=== PATIENT | male | born 1965 ===

== ENCOUNTER 2020-05-29 10:01 | Emergency (ER) | payer OTHER, SELFPAY ==
[2020-05-29 10:13] VITALS: BP 129/91; PULSE 61; RESP 20; TEMP 36.2; O2SAT 97
--- NOTE | 2020-05-29 10:28 | ED.BACK ---
HPI - Back Pain/Injury General Chief Complaint: Back Pain/Injury Stated Complaint: back pain Source: patient Mode of arrival: ambulatory Limitations: no limitations History of Present Illness HPI Narrative: Patient is a 54-year-old male who presents complaining of lower back pain that radiates into the left leg. He reports he was using a equipment washer at work 2 to 3 days ago and reports possibly twisting wrong. He reports pain is increased over the past few days, he has taken Tylenol without relief. He reports pain increases with movement. Reports a history of back pain with laminectomy 20+ years ago. He sees a chiropractor as needed and reports going to the chiropractor 2 days ago without relief. He denies numbness to lower leg, but reports sharp shooting pain down buttocks into left leg. MD elicited complaint: back pain Pertinent past history: prior back pain Severity: moderate Related Data Home Medications Medication Instructions Recorded Confirmed atorvastatin 40 mg PO DAILY 07/03/19 05/29/20 clopidogrel 75 mg PO DAILY 07/03/19 05/29/20 lisinopril-hydrochlorothiazide 20 - 125 tablet PO DAILY 07/03/19 05/29/20 metoprolol succinate [Toprol XL] 100 mg PO DAILY 07/03/19 05/29/20 aspirin [Adult Low Dose Aspirin] 81 mg PO DAILY 05/29/20 05/29/20 gabapentin 300 mg PO BID 05/29/20 05/29/20 Allergies Allergy/AdvReac Type Severity Reaction Status Date / Time No Known Allergies Allergy Verified 05/29/20 10:20 Review of Systems Review of Systems: Narrative: CONSTITUTIONAL: Denies fever, chills, or sweats. EYES: Denies visual changes, redness, or discharge. ENT: Denies rhinorrhea, congestion, sore throat, or otalgia. CARDIOVASCULAR: Denies chest pain, palpitations, or edema. RESPIRATORY: Denies cough or dyspnea. GASTROINTESTINAL: Denies abdominal pain, nausea, vomiting, or diarrhea. GENITOURINARY: Denies dysuria or hematuria. SKIN: Denies rash or itching. MUSCULOSKELETAL: Reports left lower back pain that radiates into left buttocks and leg, denies joint pain or myalgia. NEUROLOGIC: Denies headache, numbness, dizziness, or weakness. PSYCHIATRIC: Denies anxiety or depression. [facility] Past Medical History Medical History (Updated 05/29/20 @ 10:43 by KAITLYN Gallego) HTN (hypertension) Hypercholesterolemia Surgical History Surgical History History of heart artery stent Hx of laminectomy Social History Social History (Updated 05/29/20 @ 10:34 by KAITLYN Gallego) Smoking status: Current every day smoker Alcohol intake: current Alcohol use details: socially Substance use: never Living arrangements: with family Occupation/Education: occupation Exam Narrative: Exam Narrative: GENERAL: Well-appearing, well-nourished, and in no acute distress. HEAD: Normocephalic, atraumatic. EYES: No redness or drainage. Conjunctiva are normal. ENT: Mucous membranes pink and moist. HEART: Regular rate and rhythm. No murmur appreciated. Normal peripheral pulses. MUSCULOSKELETAL: Left paraspinous tenderness with palpation, pain to left buttocks with palpation EXTREMITIES: Normal range of motion. No edema. Good pedal pulses and <2 capillary refill. SKIN: Warm, dry, no rash. NEURO: No focal deficits. Alert and oriented x3. Gait steady. PSYCH: Normal affect. No signs of depression or anxiety. Course Vital Signs Vital signs: Vital Signs Temperature 36.2 C L 05/29/20 10:13 Pulse Rate 61 05/29/20 10:13 Respiratory Rate 20 05/29/20 10:13 Blood Pressure 129/91 H 05/29/20 10:13 Pulse Oximetry 97 05/29/20 10:13 Temperature 36.2 C L 05/29/20 10:13 Pulse Rate 61 05/29/20 10:13 Respiratory Rate 20 05/29/20 10:13 Blood Pressure 129/91 H 05/29/20 10:13 Pulse Oximetry 97 05/29/20 10:13 Reviewed. Patient has been instructed to follow-up with his PCP regarding his blood pressure. MDM - Back Pain/Injury MDM Narrative Me
== END 2020-05-29 10:52 | disposition home or self-care (01) ==
PROVIDERS: Emergency Provider Nurse Practitioner; PCP Nurse Practitioner Adult Health
DX: M54.16 Radiculopathy, lumbar region (principal); M54.32 Sciatica, left side; F17.200 Nicotine dependence, unspecified, uncomplicated; I10 Essential (primary) hypertension; E78.00 Pure hypercholesterolemia, unspecified; Z95.5 Presence of coronary angioplasty implant and graft
CPT/HCPCS: 99213; G0463

== ENCOUNTER → 2020-06-10 17:24 | Outpatient (CLI) | payer OTHER, SELFPAY ==
--- NOTE | ~2020-06-10 | XR_ITS ---
EXAMINATION: XR lumbar spine 2-3V EXAM DATE: 06/10/2020 18:55 INDICATION: Initial encounter following injury, with pain of the hip pain, toe numbness. TECHNIQUE: Lumber spine frontal, lateral, lateral L5-S1 projections for interpretation. There is no prior study for comparison. FINDINGS: There is moderate to severe facet arthropathy and moderate disc disease at L4-5 and L5-S1. Mild to moderate spondylosis at L3-4. No spondylolysis. The vertebral bodies are aligned in the AP d imension. The vertebral body heights are maintained. Sacrum, sacroiliac joints, sacral arcuate lines are intact. Paraspinal soft tissue is unremarkable. IMPRESSION: 1. Lower lumbar moderate to severe facet arthropathy, moderate disc disease. Reviewed, dictated and finalized at [facility].
--- NOTE | ~2020-06-10 | XR_ITS ---
EXAMINATION: XR hip LT min 2V EXAM DATE: 06/10/2020 18:55 INDICATION: No known recent injury provided at this time. Pain of the left hip. TECHNIQUE: Left hip frontal, 'frog leg' projections for interpretation. There is no prior study for comparison. FINDINGS: Smooth left hip femoral head contour, no radiographic evidence of avascular necrosis. Ther e is moderate primary osteoarthritis. There are no acute fractures or dislocations identified. There is no subcutaneous gas. The soft tissue is unremarkable. There are no radiopaque foreign bodies. IMPRESSION: Moderate left hip osteoarthritis. Reviewed, dictated and finalized at [facility].
== END ==
PROVIDERS: PCP Nurse Practitioner Adult Health; Visit Provider Chiropractor
DX: M51.36 Other intervertebral disc degeneration, lumbar region (principal); M16.12 Unilateral primary osteoarthritis, left hip
CPT/HCPCS: 72100; 73502

== ENCOUNTER 2021-01-02 21:40 | Emergency (ER) | payer OTHER, SELFPAY ==
--- NOTE | ~2021-01-02 | CT_ITS ---
EXAMINATION: CT cervical spine wo con DATE: 01/02/2021 22:55 INDICATION: Fall TECHNIQUE: Computed tomography (CT) of the cervical spine was performed without intravenous contrast. Automated exposure control and iterative reconstruction technique were employed. Exam dose: 507.34 mGy-cm total exam DLP. COMPARISON: None FINDINGS: There is degenerative change including narrowing of the joint space and spurring at the art iculation of the C1 anterior arch and the C2 odontoid process. Anterior osteophytes are noted through out the cervical spine. Cervical interspaces are relatively preserved. No fracture or dislocation or locked facet or prevertebral soft tissue swelling. IMPRESSION: Degenerative changes; no fracture, dislocation or locked facet Reviewed, dictated and finalized at [facility]. Reviewed, dictated and finalized at [facility].
--- NOTE | ~2021-01-02 | CT_ITS ---
EXAMINATION: CT brain wo con DATE: 01/02/2021 22:55 INDICATION: Fall. Worsening left arm weakness. TECHNIQUE: Computed tomography (CT) of the head was performed without intravenous contrast. The mA wa s adjusted according to patient size. Iterative reconstruction technique was employed. Exam dose: 60 5.33 mGy-cm total exam DLP. COMPARISON: None FINDINGS: No intracranial mass lesion or hemorrhage or cerebrovascular accident is evident. No midlin e shift or mass effect. Normal barraza-white matter differentiation. No subdural or epidural hematoma is detected. Some carotid siphon internal carotid artery calcifications are noted. Included paranasal sinuses and mastoid air cells are unremarkable. No fracture or bone destruction of the cranial vault. IMPRESSION: Cerebral atherosclerosis; no acute intracranial finding or skull fracture Reviewed, dictated and finalized at [facility]. Reviewed, dictated and finalized at [facility]. IMPRESSION: Cerebral atherosclerosis; no acute intracranial finding or skull f racture
[2021-01-02 21:47] VITALS: BP 155/116; PULSE 84; RESP 20; TEMP 36.9
--- NOTE | 2021-01-02 22:33 | ECG_ITS ---
Measurements Intervals [place] Rate: 85 P: 58 MN: 199 QRS: 58 QRSD: 89 T: 58 QT: 333 QTc: 396 Interpretive Statements SINUS RHYTHM VENTRICULAR PREMATURE COMPLEX INCOMPLETE RIGHT BUNDLE BRANCH BLOCK BORDERLINE ST ABNORMALITY- ANTEROLATERAL LEADS BASELINE ARTIFACT- I, II, III, AVR, AVL, AVF, V2 BORDERLINE ECG Electronically Signed On 01-03-2021 7:02:50 CDT by Arley Fay D.O.
--- NOTE | 2021-01-02 22:39 | ED.NEUROSD ---
HPI - Neuro Symptoms/Deficit General Chief Complaint: Neuro Symptoms/Deficit Stated Complaint: pt sts arm and neck locked up 45 ,imutes ago Time Seen by Provider: 01/02/21 22:09 Source: patient Mode of arrival: wheelchair Limitations: no limitations History of Present Illness HPI Narrative: This is a 55 year old male with history DM, hypertension, peripheral neuropathy who presents for evaluation of abnormal left arm movement. He states he has been having bilateral feet and hand numbness tingling since July 2020. He states he was diagnosed with peripheral neuropathy at that time. He reports he had an MRI of his lumbar spine and thoracic spine but he is unsure if his cervical spine was imaged. He reports progressive weakness over the past month, and he is having trouble ambulating due to his leg weakness. Tonight he became dizzy and he fell. Afterwards he states his left arm contracted to his side and his neck turned to the left. He denies extremity pain. He has numbness to bilateral arms up to his elbow. He denies LOC, nausea, vomiting, fever or chills. Related Data Allergies Allergy/AdvReac Type Severity Reaction Status Date / Time iohexol AdvReac Vomiting Verified 01/02/21 21:56 [From contrast - CT, X-RAY] Review of Systems Review of Systems: All systems reviewed & are unremarkable except as noted in HPI and below PMFSH Past Medical History Medical History (Updated 01/03/21 @ 07:46 by Sara Gutierrez MD) Hypertension Peripheral neuropathy Surgical History Surgical History (Updated 01/02/21 @ 22:49 by Sara Gutierrez MD) History of lumbar laminectomy Family History Family History (Updated 03/24/16 @ 23:21 by DOCTOR UNKNOWN) Father Hypertension Family history of alcoholism Patient's father is Mother Hypertension Patient's mother is in good health Sibling Patient's sister is in good health Patient's brother is in good health Grandparent Hypertension Other Family history of attention deficit hyperactivity disorder (ADHD) Family history of eczema Family history of kidney disease Family history of learning disability Family history of seizure disorder Social History Social History Alcohol intake: never Gender identity (if verbalized by the patient): Male Exam Const: General: no acute distress and alert Orientation/consciousness: patient oriented x3 HENMT: Head: normocephalic and atraumatic Face and sinus: face symmetric Throat: posterior oropharynx normal, tonsils normal and uvula midline Eyes: Pupils: Equal, round and reactive pupils present EOM: EOMs intact bilaterally Resp: Effort & Inspection: normal respiratory effort and no retractions Auscultation: clear to auscultation bilaterally Cardio: Rate: regular rate Rhythm: regular rhythm Heart sounds: no murmurs GI: GI Palp: Yes Soft to palpation, No Tenderness to palpation present (GI) and No Guarding due to palpation present (GI) Neuro: General: patient oriented x3 and CN's II-XI intact bilaterally Cranial nerves: Yes Nystagmus not present Speech: normal speech Other: able to lift right arm but there is drift, left arm about to shrug shoulder, 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 This appears to be progressive problem . tHis does note appear to be a CVA or TIA. left leg weakness, numbness is chronic and not new today. He is followed by neurosurgery at [facility] so he will be transferred. Date: 01/03/21 Time: 00:18 Reevaluation #2: PAtient is awaiting bed [facility] Care to be turned over to dR. Herrera. Date: 01/03/21 Time: 07:47 Consultations Consultation #1: I discussed case with Dr. Barger and he accepts
[2021-01-02 22:49] LABS: Basophils Absolute Auto 0.1 K/mm3 (0.0-0.1); Basophils Percent Auto 0.6 % (0.2-1.2); Eosinophils Absolute Auto 0.2 K/mm3 (0-0.3); Eosinophils Percent Auto 1.7 % (0-4.4); Hematocrit 44.6 % (42.0-52.0); Hemoglobin 14.5 g/dL (14.0-18.0); Immature Granulocyte Absolute 0.11 K/mm3 (0.00-0.031); Lymphocytes Absolute Auto 3.09 K/mm3 (0.9-3.2); Lymphocytes Percent Auto 28.5 % (18.3-44.2); Mean Corpuscular HGB Conc 32.5 g/dl (32-36); Mean Corpuscular Hemoglobin 28.6 pg (26-34); Mean Platelet Volume 9.7 fl (7.4-10.4); Monocytes Absolute Auto 1.2 K/mm3 (0.1-0.6); Monocytes Percent Auto 11.4 % (2.6-8.5); Neutrophils Absolute Auto 6.2 K/mm3 (1.3-6.7); Neutrophils Percent Auto 56.8 % (45.5-73.1); Platelet Count Result 271 k/mm3 (150-375); Red Blood Count 5.07 M/mm3 (4.6-6.20); Red Cell Distribution Width 13.4 % (11.5-14.5); White Blood Count 10.8 K/mm3 (4.5-10.0)
[2021-01-02 22:55] LABS: INR 0.9; Prothrombin Time 12.4 Seconds (11.1-14.7)
[2021-01-02 22:56] VITALS: BP 125/91; PULSE 76; RESP 21; O2SAT 97
[2021-01-02 22:56] LABS: Partial Thromboplastin Time 27.3 SECONDS (22.3-36.8)
[2021-01-02 22:57] LABS: Alanine Aminotransferase 32 U/L (4-50); Albumin Level 4.6 g/dL (3.5-5.1); Alkaline Phosphatase 160 U/L (38-126); Anion Gap 7 mmol/L (8-16); Aspartate Amino Transferase 29 U/L (17-59); Bilirubin,Total 0.6 mg/dL (0.2-1.3); Blood Urea Nitrogen 16 mg/dL (9-20); Calcium 9.6 mg/dL (8.4-10.2); Carbon Dioxide 31 mmol/L (22-30); Chloride 101 mmol/L (98-107); Estimated Glomerular Filt Rate > 60; Glucose 104 mg/dL (75-110); Potassium 3.8 mmol/L (3.4-5.0); Sodium 139 mmol/L (137-145)
[2021-01-03] VITALS (40 sets, daily range): BP systolic 95–167; BP diastolic 61–105; PULSE 56–80; RESP 14–25; TEMP 36.6–36.8; O2SAT 94–100
--- NOTE | 2021-01-03 00:10 | PC.NURSE ---
Pt was accepted as a pt at [place] in the neuro surgery unit.
--- NOTE | 2021-01-03 03:42 | PC.NURSE ---
contacted [facility], spoke with Kathy about patients bed status. Neuro surg center is full at this time. bed should be available after discharges .
--- NOTE | 2021-01-03 05:59 | PC.NURSE ---
contacted [facility], spoke with Kathy about patients bed status. Neuro surgery center is full at this time. bed should be available after discharges this morning- Kathy states they will call when they have a bed available.
--- NOTE | 2021-01-03 07:45 | PC.NURSE ---
breakfast food order called in.
--- NOTE | 2021-01-03 20:31 | PC.NURSE ---
Pt accepted at [place]. ROOM [id number] [facility]. Accepting MD: Travis Wellington. Report phone Number: [phone].
--- NOTE | 2021-01-03 20:39 | PC.NURSE ---
Report to FIDELIA Watkins at [facility]. Pt updated.
== END 2021-01-03 21:11 | disposition short-term general hospital (02) ==
PROVIDERS: General Practice; Emergency Provider Emergency Medicine; PCP Nurse Practitioner Adult Health
DX: R53.1 Weakness (principal); R20.2 Paresthesia of skin; E11.42 Type 2 diabetes mellitus with diabetic polyneuropathy; I10 Essential (primary) hypertension; I49.3 Ventricular premature depolarization; I45.10 Unspecified right bundle-branch block; R94.31 Abnormal electrocardiogram [ECG] [EKG]; I67.2 Cerebral atherosclerosis; M47.812 Spondylosis without myelopathy or radiculopathy, cervical region
CPT/HCPCS: 36415; 70450; 72125; 80053; 85025; 85610; 85730; 93005; 99285

== ENCOUNTER → 2022-12-09 09:11 | Outpatient (CLI) | payer OTHER, SELFPAY ==
--- NOTE | ~2022-12-09 | XR_ITS ---
AP and lateral views of the left hip Clinical history: Pain Findings: No acute fracture or dislocation is seen. Osseous alignment is anatomic. There is mild left hip joint osteoarthritis, with femoral head neck junction osteophytes present. Soft tissues are unre markable. Impression: Mild osteoarthritis of the left hip joint. Reviewed, dictated and finalized at [facility]. Impression: Mild osteoarthritis of the left hip joint.
== END ==
PROVIDERS: PCP Nurse Practitioner Family; Visit Provider Nurse Practitioner Family
DX: G61.81 Chronic inflammatory demyelinating polyneuritis (principal); M16.12 Unilateral primary osteoarthritis, left hip
CPT/HCPCS: 73502